=== PATIENT | male | born 1995 | race Two or more races ===

== ENCOUNTER 2019-11-10 21:49 | Emergency (ER) | payer OTHER ==
[~2019-11-10] VITALS: Ht 175.3 cm; Wt 106.3 kg
--- NOTE | 2019-11-10 21:53 | PHYS DOC ---
General Adult EDM: Chief Complaint: BACK PAIN OR INJURY HPI: HPI: "..I was playing with my little girl.. and had something pull....in my Rt. lower back.. ".. " Really did not do anything crazy.. but man .. 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 Patient denies any problems with defecation or urination. No history of fever or chills. No history of recent travel outside [facility]. Patient has demonstratable spasm in lumbar sacral area primarily on the right. Does radiate into the right sciatic nerve. Straight leg lift on the right does exacerbate his pain. Patient follows at [facility] Review of Systems: Review of Systems: Constitutional: Denies fever or chills Eyes: Denies change in visual acuity HENT: Denies nasal congestion or sore throat Respiratory: Denies cough or shortness of breath Cardiovascular: Denies chest pain or edema GI: Denies abdominal pain, nausea, vomiting, bloody stools or diarrhea : Denies dysuria Musculoskeletal: Complaints of back pain Integument: Denies rash Neurologic: Denies headache, focal weakness or sensory changes Endocrine: Denies polyuria or polydipsia Lymphatic: Denies swollen glands Psychiatric: Denies depression or anxiety Heart Score: Risk Factors: Risk Factors: DM, Current or recent (<one month) smoker, HTN, HLP, family history of CAD, obesity. Risk Scores: Score 0 - 3: 2.5% MACE over next 6 weeks - Discharge Home Score 4 - 6: 20.3% MACE over next 6 weeks - Admit for Clinical Observation Score 7 - 10: 72.7% MACE over next 6 weeks - Early Invasive Strategies Family History: Family History: Noncontributory Current Medications: Current Meds: See nursing for home meds Allergies: Allergies: No known drug allergies Physical Exam: PE: Constitutional: Well developed, well nourished, no acute distress, non-toxic appearance. [] HENT: Normocephalic, atraumatic, bilateral external ears normal, oropharynx moist, no oral exudates, nose normal. [] Eyes: PERRLA, EOMI, conjunctiva normal, no discharge. [] Neck: Normal range of motion, no tenderness, supple, no stridor. [] Cardiovascular:Heart rate regular rhythm, no murmur [] Lungs & Thorax: Bilateral breath sounds clear to auscultation [] Abdomen: Bowel sounds normal, soft, no tenderness, no masses, no pulsatile masses. [] No saddle loss reported. Skin: Warm, dry, no erythema, no rash. [] Back: Complains of severe lumbar sacral muscle spasms and tenderness, no CVA tenderness. [] Pain radiate down right sciatic nerve. Extremities: No tenderness, no cyanosis, no clubbing, ROM intact, no edema. [] Neurologic: Alert and oriented X 3, normal motor function, normal sensory function, no focal deficits noted. [] DTRs +2 patella. Psychologic: Affect anxious, judgement normal, mood normal. [] EKG: EKG: [] Radiology/Procedures: Radiology/Procedures: [][place] [address] IMAGING REPORT Signed PATIENT: LAZARO FORDACCOUNT: [id number] : 1995 LOCATION: ER AGE: 23 SEX: M EXAM STATUS: REG ER ORD. PHYSICIAN: FABI HERRING MD REASON: lumbar sciatic pain, RIGHT SIDE PROCEDURE: CT LUMBAR SPINE WO CONTRAST CT scan of the lumbar spine without contrast 11/10/2019 CLINICAL HISTORY: Low back pain which radiates down the right leg. TECHNIQUE: Unenhanced, contiguous, 0.625 mm axial sections were obtained through the lumbar spine. 3 mm reconstructed sagittal, axial and coronal images were obtained. FINDINGS: Sagittal and coronal reconstructed images demonstrate minimal S-shaped curvature of the thoracolumbar spine. No fracture or subluxation of the lumbar vertebrae is seen. On the axial images throughout the lumbar spine, the changes of degenerative disc disease are seen. These consist of minimal to mild generalized disc bulges, degenerative changes involving the facet joints and mild ligamentum flavum hypertrophy. These findings result in mild central spinal canal stenosis at L4-5. No neural foraminal stenosis is seen. At the L3-4 disc space a superimposed focal central disc protrusion is seen which measures 4 mm in AP diameter. It contributes to mild to moderate central spinal canal stenosis. IMPRESSION: The changes of degenerative disc disease are seen involving the lumbar spine. These findings result in mild to moderate central spinal canal stenosis at L3-4 and mild central spinal canal stenosis at L4-5. No neural foraminal stenosis is seen. No acute osseous abnormality is seen. Electronically signed by: Enrique Umana MD (11/10/2019 11:05 PM) [id number] DICTATED AND SIGNED BY: ENRIQUE UMANA MD DATE: 11/10/19 3940 CC: FABI HERRING MD; PCP,UNKNOWN ~ Course & Med Decision Making: Course & Med Decision Making Pertinent Labs and Imaging studies reviewed. (See chart for details) Take Tylenol and ibuprofen as needed for pain. Marked pain may take Vicoprofen. May take Flexeril 10 mg 3 times a day for muscle spasm. Use ice packs. Follow-up with [facility]. Take disc of CT with you on follow-up. Impression: 1. Sciatica 2. Muscle Spasm 3. Multilevel DJD with mild central spinal stenosis at L4-5 [] Dragon Disclaimer: Dragon Disclaimer: This electronic medical record was generated, in whole or in part, using a voice recognition dictation system. Departure Departure: Disposition: 01 HOME/RESIDENCE PRIOR TO ADM Condition: STABLE Referrals: PCP,UNKNOWN (PCP) Scripts Cyclobenzaprine Hcl (CYCLOBENZAPRINE HCL) 5 Mg Tablet 10 MG PO tidp for pain, spasm, #30 TAB Prov: FABI HERRING MD 11/10/19 Hydrocodone/Ibuprofen (HYDROCODONE-IBUPROFEN 7.5-200 ) 1 Each Tablet 1 TAB PO PRN Q6HRS PRN for PAIN, #30 TAB 0 Refills Prov: FABI HERRING MD 11/10/19 Justification of Admission: Justification of Admission: Justification of Admission Dx: N/A Dragon Disclaimer This chart was dictated in whole or in part using Voice Recognition software in a busy, high-work load, and often noisy Emergency Department environment. It may contain unintended and wholly unrecognized errors or omissions. Dragon Disclaimer This chart was dictated in whole or in part using Voice Recognition software in a busy, high-work load, and often noisy Emergency Department environment. It may contain unintended and wholly unrecognized errors or omissions. FABI HERRING MD Nov 10, 2019 21:53
[2019-11-10] MEDS ORDERED: HYDR-1179 PO (22:23)
[2019-11-10] MEDS ORDERED: CYCL5TAB PO (22:23)
[2019-11-10] MEDS ORDERED: MORPHINE SULFATE 10 MG/ML SYRINGE. SQ ONE (22:30)
[2019-11-10] MEDS ORDERED: KETOROLAC 60 MG/2 ML VIAL. IM ONE (22:30)
[2019-11-10] MEDS ORDERED: ORPHENADRINE CITRATE 60 MG/2 ML VIAL. IM ONE (22:30)
--- NOTE | 2019-11-10 23:09 | RAD ---
CT scan of the lumbar spine without contrast 11/10/2019 CLINICAL HISTORY: Low back pain which radiates down the right leg. TECHNIQUE: Unenhanced, contiguous, 0.625 mm axial sections were obtained through the lumbar spine. 3 mm reconstructed sagittal, axial and coronal images were obtained. FINDINGS: Sagittal and coronal reconstructed images demonstrate minimal S-shaped curvature of the thoracolumbar spine. No fracture or subluxation of the lumbar vertebrae is seen. On the axial images throughout the lumbar spine, the changes of degenerative disc disease are seen. These consist of minimal to mild generalized disc bulges, degenerative changes involving the facet joints and mild ligamentum flavum hypertrophy. These findings result in mild central spinal canal stenosis at L4-5. No neural foraminal stenosis is seen. At the L3-4 disc space a superimposed focal central disc protrusion is seen which measures 4 mm in AP diameter. It contributes to mild to moderate central spinal canal stenosis. IMPRESSION: The changes of degenerative disc disease are seen involving the lumbar spine. These findings result in mild to moderate central spinal canal stenosis at L3-4 and mild central spinal canal stenosis at L4-5. No neural foraminal stenosis is seen. No acute osseous abnormality is seen. Electronically signed by: Enrique Croft MD (11/10/2019 11:05 PM) [id number]
[2019-11-10] MEDS ORDERED: methylPREDNISolone ACETATE 40 MG/ML VIAL. IM ONE (23:15)
[2019-11-11] VITALS: BP 146/76
== END 2019-11-11 00:25 | disposition home or self-care (01) ==
LOC: ER 21:49
DX: M54.41 Lumbago with sciatica, right side (principal); M48.061 Spinal stenosis, lumbar region without neurogenic claudication; M47.896 Other spondylosis, lumbar region
CPT/HCPCS: 72131; 96372; 99284; J1030; J1885; J2270; J2360